=== PATIENT | male | born 1935 | race Caucasian/White ===

== ENCOUNTER 2017-02-18 11:23 | Inpatient (IN) | payer MEDICARE, MEDICAID ==
[~2017-02-18] VITALS: Ht 162.6 cm; Wt 74.2 kg
[~2017-02-18 11:23] MED LIST: AMLO5TAB2 PO; AMOX1TAB64 PO; AMPI250C3 PO; ASPI-650 PO; ATOR40TA78 PO; BIMA2.5D EACHEYE; BRIM5DRO2 EACHEYE; DORZ10DR3 EACHEYE; DORZ10DR7 EACHEYE; DOXA1TAB PO; ENOX40SY4 SQ; FENO145T13 PO; LEVO75TA5 PO; LISI-167 PO; SENN1TAB7 PO; TIMO1DRO2 EACHEYE; [UNRECOGNIZED DRUG - OTHER]; [UNRECOGNIZED DRUG - OTHER]; [UNRECOGNIZED DRUG - OTHER]
[2017-02-18] MEDS ORDERED: HYDROcodone/APAP 5/325 TABLET PO ONE (12:00)
[2017-02-18] MEDS ORDERED: HYDROcodone/APAP 5/325 TABLET PO PRN (12:00)
[2017-02-18] MEDS ORDERED: ASPIRIN 81 MG TABLET CHEW PO ONE (12:00)
[2017-02-18] MEDS ORDERED: SODIUM CHLORIDE 0.9% 1,000 ML IV ONE (12:15)
[2017-02-18 12:28] LABS: HEMATOCRIT 47.2 % (39.2-51.8); HEMOGLOBIN 15.1 g/dL (13.7-18.0); WHITE BLOOD COUNT 9.1 x10^3/uL (3.4-10)
[2017-02-18] MEDS ORDERED: NITROGLYCERIN OINT 2%, 1GM TP ONE ×2 (12:28→12:30)
[2017-02-18] MEDS ORDERED: SODIUM CHLORIDE FLUSH 10ML SYR IVF ONE (12:30)
[2017-02-18 12:36] LABS: BLOOD UREA NITROGEN 16 mg/dL (7-18)
[2017-02-18 12:41] LABS: IS PT STATUS REG ER OR PRE ER? YES
[2017-02-18] MEDS ORDERED: HEPARIN 1,000 UNITS/ML, 10ML ONE (12:42)
[2017-02-18] MEDS ORDERED: VERAPAMIL 2.5 MG/ML, 2ML ONE (12:42)
[2017-02-18] MEDS ORDERED: MIDAZOLAM 1 MG/ML, 5ML ONE (12:42)
[2017-02-18] MEDS ORDERED: NITROGLYCERIN 5 MG/ML, 10ML ONE (12:42)
[2017-02-18] MEDS ORDERED: BIVALIRUDIN 250 MG ONE ×2 (12:42→14:37)
[2017-02-18] MEDS ORDERED: TICAGRELOR 90 MG TABLET ONE (12:42)
[2017-02-18] MEDS ORDERED: FENTANYL PF 100 MCG/2ML ONE (12:42)
[2017-02-18] MEDS ORDERED: ATOR40TA78 PO (12:42)
[2017-02-18] MEDS ORDERED: LIDOCAINE 2%, 20ML ONE (12:43)
[2017-02-18] MEDS ORDERED: ONDANSETRON 2MG/ML, 2ML IVPush ONE (13:00)
[2017-02-18] MEDS ORDERED: MORPHINE SULFATE 4 MG/ML, 1ML IVPush PRN (13:00)
[2017-02-18] MEDS ORDERED: ASPIRIN 81 MG TABLET CHEW ONE (13:04)
[2017-02-18] MEDS ORDERED: LABETALOL 5MG/ML, 20ML ONE (13:46)
[2017-02-18] MEDS ORDERED: ADENOSINE 6 MG/2 ML ONE (13:52)
[2017-02-18] MEDS ORDERED: morphine SULFATE 10 MG/ML, 1ML IVPush PRN (14:00)
[2017-02-18] MEDS ORDERED: ONDANSETRON 2MG/ML, 2ML IVPush PRN ×2 (14:00→15:30)
[2017-02-18] MEDS ORDERED: ACETAMINOPHEN 325 MG TABLET PO PRN ×2 (14:00→15:30)
[2017-02-18] MEDS ORDERED: LABETALOL 5MG/ML, 20ML IVPush PRN ×2 (14:00→15:30)
[2017-02-18] MEDS ORDERED: TEMAZEPAM 15 MG CAPSULE PO PRN ×2 (14:00→15:30)
[2017-02-18] MEDS ORDERED: POLYETHYLENE GLYCOL 17 GM PACKET PO PRN ×2 (14:00→15:30)
[2017-02-18] MEDS ORDERED: OXYcodone IR 5MG TABLET PO PRN ×2 (14:00→15:30)
[2017-02-18] MEDS: METOPROLOL TARTRATE 25 MG TABLET PO SCH ×2 (14:30→22:30)
[2017-02-18] MEDS ORDERED: TICAGRELOR 90 MG TABLET PO ONE (14:30)
[2017-02-18] MEDS: NS + 20MEQ KCL 1,000 ML IV SCH (15:00)
[2017-02-18 15:17] LABS: IS PT STATUS REG ER OR PRE ER? NO
[2017-02-18 17:41] LABS: ABG COLLECTION SITE LEFT RADIAL; COLLATERAL CIRCULATION TESTING NORMAL
[2017-02-18] MEDS ORDERED: HEPARIN wt. based STROKE protocol MC PRN (18:30)
[2017-02-18] MEDS: morphine SULFATE 10 MG/ML, 1ML IVPush PRN (19:31)
[2017-02-18 20:09] LABS: IS PT STATUS REG ER OR PRE ER? NO
[2017-02-18] MEDS: HEPARIN 25,000 UNITS/500ML PMX 500 ML IV PRN (20:38)
[2017-02-18] MEDS ORDERED: NALOXONE 0.4 MG/ML, 1ML ONE (20:55)
[2017-02-18] MEDS: ATORVASTATIN 40 MG TABLET PO SCH (21:00)
[2017-02-19] MEDS: DORZOLAMIDE OPHTH 2%, 10ML EACHEYE SCH ×3 (02:55→21:15)
[2017-02-19] MEDS: LEVETIRACETAM 500 MG in SODIUM CHLORIDE 0.9% 100 ML IV SCH ×2 (02:55→15:11)
[2017-02-19 05:20] LABS: HEMATOCRIT 45.1 % (39.2-51.8); HEMOGLOBIN 14.8 g/dL (13.7-18.0)
[2017-02-19 05:39] LABS: ASPARTATE AMINO TRANSFERASE 77 U/L (15-37); BLOOD UREA NITROGEN 21 mg/dL (7-18)
[2017-02-19] MEDS: METOPROLOL TARTRATE 25 MG TABLET PO SCH ×3 (06:30→22:16)
[2017-02-19] MEDS ORDERED: HEPARIN 5,000 UNITS/ML, 1ML ONE (06:30)
[2017-02-19] MEDS: PANTOPROZOLE 40MG TABLET PO SCH (07:30)
[2017-02-19] MEDS: LEVOTHYROXINE 75 MCG TABLET PO SCH (08:00)
[2017-02-19] MEDS: SENNA/DOCUSATE TABLET PO SCH (09:00)
[2017-02-19] MEDS: LISINOPRIL 5 MG TABLET PO SCH (09:00)
[2017-02-19] MEDS ORDERED: SENNA/DOCUSATE TABLET PO SCH (09:00)
[2017-02-19] MEDS: AMPICILLIN/SULBACTAM 3 GM in SODIUM CHLORIDE 0.9% 100 ML IV SCH ×3 (09:43→21:15)
[2017-02-19] MEDS: NS + 20MEQ KCL 1,000 ML IV SCH (13:57)
[2017-02-19] MEDS: ATORVASTATIN 40 MG TABLET PO SCH (21:00)
[2017-02-20] MEDS: NS + 20MEQ KCL 1,000 ML IV SCH ×3 (00:28→22:58)
[2017-02-20] MEDS ORDERED: ACETAMINOPHEN 650 MG SUPP PR PRN (00:30)
[2017-02-20] MEDS: HEPARIN 25,000 UNITS/500ML PMX 500 ML IV PRN (00:32)
[2017-02-20] MEDS: LEVETIRACETAM 500 MG in SODIUM CHLORIDE 0.9% 100 ML IV SCH ×2 (03:04→15:22)
[2017-02-20] MEDS: AMPICILLIN/SULBACTAM 3 GM in SODIUM CHLORIDE 0.9% 100 ML IV SCH ×4 (03:36→20:36)
[2017-02-20 04:00] VITALS: BP 129/62
[2017-02-20 07:53] LABS: HEMATOCRIT 40.9 % (39.2-51.8); HEMOGLOBIN 13.2 g/dL (13.7-18.0); WHITE BLOOD COUNT 16.5 x10^3/uL (3.4-10)
[2017-02-20 07:58] LABS: BLOOD UREA NITROGEN 23 mg/dL (7-18)
[2017-02-20] MEDS ORDERED: CLOPIDOGREL 300 MG TABLET PO ONE (10:30)
[2017-02-20] MEDS: DORZOLAMIDE OPHTH 2%, 10ML EACHEYE SCH ×2 (11:01→20:36)
[2017-02-20] MEDS: LISINOPRIL 5 MG TABLET PO SCH (11:01)
[2017-02-20] MEDS: LEVOTHYROXINE 75 MCG TABLET PO SCH (11:01)
[2017-02-20] MEDS: METOPROLOL TARTRATE 25 MG TABLET PO SCH ×3 (11:02→22:19)
[2017-02-20] MEDS: SENNA/DOCUSATE TABLET PO SCH (11:02)
[2017-02-20] MEDS: PANTOPROZOLE 40MG TABLET PO SCH (11:02)
[2017-02-20] MEDS: ATORVASTATIN 40 MG TABLET PO SCH (20:36)
[2017-02-20] MEDS: morphine SULFATE 10 MG/ML, 1ML IVPush PRN (23:03)
[2017-02-21] MEDS: AMPICILLIN/SULBACTAM 3 GM in SODIUM CHLORIDE 0.9% 100 ML IV SCH ×4 (02:35→20:29)
[2017-02-21] MEDS: LEVETIRACETAM 500 MG in SODIUM CHLORIDE 0.9% 100 ML IV SCH ×2 (02:35→14:30)
[2017-02-21] MEDS: morphine SULFATE 10 MG/ML, 1ML IVPush PRN ×3 (02:43→14:30)
[2017-02-21 04:00] VITALS: BP 104/58
[2017-02-21 04:29] LABS: HEMATOCRIT 39.4 % (39.2-51.8); HEMOGLOBIN 12.3 g/dL (13.7-18.0); WHITE BLOOD COUNT 11.3 x10^3/uL (3.4-10)
[2017-02-21 04:34] LABS: ASPARTATE AMINO TRANSFERASE 83 U/L (15-37); BLOOD UREA NITROGEN 23 mg/dL (7-18)
[2017-02-21] MEDS: LEVOTHYROXINE 75 MCG TABLET PO SCH (05:56)
[2017-02-21] MEDS: METOPROLOL TARTRATE 25 MG TABLET PO SCH ×3 (05:58→22:34)
[2017-02-21] MEDS: PANTOPROZOLE 40MG TABLET PO SCH (06:33)
[2017-02-21] MEDS: SENNA/DOCUSATE TABLET PO SCH (09:30)
[2017-02-21] MEDS: SPIRONOLACTONE 25 MG TABLET PO SCH (09:30)
[2017-02-21] MEDS: LISINOPRIL 5 MG TABLET PO SCH (09:31)
[2017-02-21] MEDS: DORZOLAMIDE OPHTH 2%, 10ML EACHEYE SCH ×2 (09:31→20:29)
[2017-02-21] MEDS: CLOPIDOGREL 75 MG TABLET PO SCH (09:31)
[2017-02-21] MEDS ORDERED: NITROGLYCERIN OINT 2%, 1GM TP ONE (10:00)
[2017-02-21] MEDS: ATORVASTATIN 40 MG TABLET PO SCH (20:30)
[2017-02-22] MEDS: LEVETIRACETAM 500 MG in SODIUM CHLORIDE 0.9% 100 ML IV SCH ×2 (02:28→15:16)
[2017-02-22] MEDS: AMPICILLIN/SULBACTAM 3 GM in SODIUM CHLORIDE 0.9% 100 ML IV SCH ×4 (02:28→22:03)
[2017-02-22] MEDS: morphine SULFATE 10 MG/ML, 1ML IVPush PRN (03:50)
[2017-02-22 04:00] VITALS: BP 142/80
[2017-02-22 04:49] LABS: HEMATOCRIT 37.2 % (39.2-51.8); HEMOGLOBIN 12.1 g/dL (13.7-18.0); WHITE BLOOD COUNT 9.9 x10^3/uL (3.4-10)
[2017-02-22 04:57] LABS: BLOOD UREA NITROGEN 21 mg/dL (7-18)
[2017-02-22 04:58] LABS: ASPARTATE AMINO TRANSFERASE 79 U/L (15-37)
[2017-02-22] MEDS: LEVOTHYROXINE 75 MCG TABLET PO SCH (06:13)
[2017-02-22] MEDS: METOPROLOL TARTRATE 25 MG TABLET PO SCH ×3 (06:13→22:03)
[2017-02-22] MEDS: CLOPIDOGREL 75 MG TABLET PO SCH (08:42)
[2017-02-22] MEDS: SPIRONOLACTONE 25 MG TABLET PO SCH (08:42)
[2017-02-22] MEDS: PANTOPROZOLE 40MG TABLET PO SCH (08:42)
[2017-02-22] MEDS: SENNA/DOCUSATE TABLET PO SCH (08:42)
[2017-02-22] MEDS: DORZOLAMIDE OPHTH 2%, 10ML EACHEYE SCH ×2 (08:42→22:02)
[2017-02-22] MEDS: LISINOPRIL 5 MG TABLET PO SCH (08:42)
[2017-02-22] MEDS ORDERED: POTASSIUM CHLORIDE 20 MEQ PACKET PO ONE (10:00)
[2017-02-22] MEDS: ISOSORBIDE MONONITRATE ER 30 MG TABLET PO SCH (11:08)
[2017-02-22] MEDS ORDERED: methylPREDNISolone SOD SUCC 40 MG/ML IV SCH (22:00)
[2017-02-22] MEDS ORDERED: FUROSEMIDE 20 MG/2 ML IV ONE (22:00)
[2017-02-22] MEDS: ATORVASTATIN 40 MG TABLET PO SCH (22:02)
[2017-02-23] MEDS: AMPICILLIN/SULBACTAM 3 GM in SODIUM CHLORIDE 0.9% 100 ML IV SCH ×4 (02:57→21:02)
[2017-02-23] MEDS: LEVETIRACETAM 500 MG in SODIUM CHLORIDE 0.9% 100 ML IV SCH ×2 (02:57→15:17)
[2017-02-23 04:00] VITALS: BP 144/74
[2017-02-23 04:26] LABS: HEMATOCRIT 37.5 % (39.2-51.8); HEMOGLOBIN 12.2 g/dL (13.7-18.0); WHITE BLOOD COUNT 7.4 x10^3/uL (3.4-10)
[2017-02-23 04:36] LABS: BLOOD UREA NITROGEN 20 mg/dL (7-18)
[2017-02-23 04:41] LABS: ASPARTATE AMINO TRANSFERASE 182 U/L (15-37)
[2017-02-23] MEDS: LEVOTHYROXINE 75 MCG TABLET PO SCH (05:49)
[2017-02-23] MEDS: METOPROLOL TARTRATE 25 MG TABLET PO SCH ×3 (06:00→21:04)
[2017-02-23] MEDS: PANTOPROZOLE 40MG TABLET PO SCH (08:17)
[2017-02-23] MEDS: SPIRONOLACTONE 25 MG TABLET PO SCH (08:17)
[2017-02-23] MEDS: CLOPIDOGREL 75 MG TABLET PO SCH (08:17)
[2017-02-23] MEDS: DORZOLAMIDE OPHTH 2%, 10ML EACHEYE SCH ×2 (08:18→21:00)
[2017-02-23] MEDS: ISOSORBIDE MONONITRATE ER 30 MG TABLET PO SCH (08:18)
[2017-02-23] MEDS: LISINOPRIL 5 MG TABLET PO SCH (08:18)
[2017-02-23] MEDS: SENNA/DOCUSATE TABLET PO SCH (08:18)
[2017-02-23] MEDS ORDERED: DIPHENHYDRAMINE 50 MG/ML, 1ML IVPush ONE (10:00)
[2017-02-23] MEDS ORDERED: BENZOCAINE 20% SPRAY 0.5ML TP ONE (11:30)
[2017-02-23] MEDS ORDERED: ALBUTEROL SULFATE 2.5 MG/3 ML ONE (12:49)
[2017-02-23] MEDS: ALBUTEROL SULFATE 2.5 MG/3 ML NPPB SCH ×2 (12:50→18:23)
[2017-02-23 19:35] VITALS: BP 159/82
[2017-02-23] MEDS: ATORVASTATIN 40 MG TABLET PO SCH (21:04)
[2017-02-24 01:17] VITALS: BP 155/77
[2017-02-24] MEDS: ALBUTEROL SULFATE 2.5 MG/3 ML NPPB SCH ×2 (01:30→07:30)
[2017-02-24] MEDS: LEVETIRACETAM 500 MG in SODIUM CHLORIDE 0.9% 100 ML IV SCH (03:36)
[2017-02-24] MEDS: AMPICILLIN/SULBACTAM 3 GM in SODIUM CHLORIDE 0.9% 100 ML IV SCH ×2 (03:52→08:58)
[2017-02-24 05:57] VITALS: BP 164/63
[2017-02-24] MEDS: LABETALOL 5MG/ML, 20ML IVPush PRN ×2 (05:59→09:26)
[2017-02-24] MEDS: LEVOTHYROXINE 75 MCG TABLET PO SCH (06:00)
[2017-02-24 06:13] LABS: ASPARTATE AMINO TRANSFERASE 159 U/L (15-37)
[2017-02-24] MEDS: METOPROLOL TARTRATE 25 MG TABLET PO SCH (06:30)
[2017-02-24 06:40] VITALS: BP 143/72
[2017-02-24] MEDS: PANTOPROZOLE 40MG TABLET PO SCH (07:30)
[2017-02-24 08:10] LABS: ABG COLLECTION SITE RIGHT RADIAL
[2017-02-24 08:11] LABS: COLLATERAL CIRCULATION TESTING NORMAL
[2017-02-24 08:22] LABS: BLOOD UREA NITROGEN 18 mg/dL (7-18)
[2017-02-24 08:34] LABS: WHITE BLOOD COUNT 10.2 x10^3/uL (3.4-10)
[2017-02-24 08:36] LABS: DIFF TOTAL CELLS COUNTED 100 CELL DIFF
[2017-02-24 08:40] LABS: GIANT PLATELETS 1+; LARGE PLATELETS 2+; VERIFY COUNTS? YES
[2017-02-24 08:54] VITALS: BP 155/77
[2017-02-24] MEDS: DORZOLAMIDE OPHTH 2%, 10ML EACHEYE SCH (08:58)
[2017-02-24] MEDS: CLOPIDOGREL 75 MG TABLET PO SCH (09:00)
[2017-02-24] MEDS: SENNA/DOCUSATE TABLET PO SCH (09:00)
[2017-02-24] MEDS: ISOSORBIDE MONONITRATE ER 30 MG TABLET PO SCH (09:00)
[2017-02-24] MEDS: LISINOPRIL 5 MG TABLET PO SCH (09:00)
[2017-02-24] MEDS: SPIRONOLACTONE 25 MG TABLET PO SCH (09:00)
[2017-02-24] MEDS ORDERED: morphine SULFATE 10 MG/ML, 1ML IV ONE (11:30)
[2017-02-24] MEDS ORDERED: LORazepam 2 MG/ML, 1ML IV PRN (11:30)
[2017-02-24] MEDS ORDERED: SCOPOLAMINE PATCH, 1.5MG PATCH.TD72 TD ONE (13:00)
[2017-02-27] MEDS: ATROPINE OPHTH SOLN 1%, 2ML PO PRN ×2 (12:02→17:26)
[2017-03-01] MEDS: ATROPINE OPHTH SOLN 1%, 2ML PO PRN ×2 (11:29→16:18)
[2017-03-02] MEDS: ATROPINE OPHTH SOLN 1%, 2ML PO PRN (00:33)
== END 2017-03-02 06:20 | disposition expired | DRG 248 ==
LOC: ED 12:06 → EDIP 12:38 → CCU 14:34 → ICU 02-20 14:59 → 5SO 02-23 19:29 → 3NW 02-24 13:37
PROVIDERS: ADMIT Internal Medicine Cardiovascular Disease
PROC: 02703DZ Dilation of Coronary Artery, One Artery with Intraluminal Device, Percutaneous Approach (ICD-10-PCS; principal; 2017-02-18)
PROC: 4A023N7 Measurement of Cardiac Sampling and Pressure, Left Heart, Percutaneous Approach (ICD-10-PCS; 2017-02-18)
PROC: B2111ZZ Fluoroscopy of Multiple Coronary Arteries using Low Osmolar Contrast (ICD-10-PCS; 2017-02-18)
PROC: B3101ZZ Fluoroscopy of Thoracic Aorta using Low Osmolar Contrast (ICD-10-PCS; 2017-02-18)
PROC: B2151ZZ Fluoroscopy of Left Heart using Low Osmolar Contrast (ICD-10-PCS; 2017-02-18)
DX: I21.09 ST elevation (STEMI) myocardial infarction involving other coronary artery of anterior wall (principal); I60.9 Nontraumatic subarachnoid hemorrhage, unspecified; I63.9 Cerebral infarction, unspecified; G93.5 Compression of brain; G93.6 Cerebral edema; N17.9 Acute kidney failure, unspecified; E87.0 Hyperosmolality and hypernatremia; G81.91 Hemiplegia, unspecified affecting right dominant side; E87.6 Hypokalemia; I45.10 Unspecified right bundle-branch block; M19.90 Unspecified osteoarthritis, unspecified site; E03.9 Hypothyroidism, unspecified; E78.5 Hyperlipidemia, unspecified; H40.9 Unspecified glaucoma; H54.0 Blindness, both eyes; Z66 Do not resuscitate; I10 Essential (primary) hypertension; Z51.5 Encounter for palliative care; R06.89 Other abnormalities of breathing; B95.2 Enterococcus as the cause of diseases classified elsewhere; I25.10 Atherosclerotic heart disease of native coronary artery without angina pectoris; I25.5 Ischemic cardiomyopathy; I35.8 Other nonrheumatic aortic valve disorders; I77.819 Aortic ectasia, unspecified site; N40.0 Benign prostatic hyperplasia without lower urinary tract symptoms; R13.10 Dysphagia, unspecified; Z79.82 Long term (current) use of aspirin; Z79.899 Other long term (current) drug therapy; I25.2 Old myocardial infarction; Z87.891 Personal history of nicotine dependence
CPT/HCPCS: 36415; 36600; 70450; 70551; 71010; 74000; 80047; 80048; 80053; 80061; 81001; 82040; 82140; 82803; 83735; 84100; 84295; 84443; 84450; 84460; 84484; 85025; 85520; 85610; 85730; 87077; 87081; 87086; 87186; 93005; 93306; 93458; 93567; 94640; 96360; 99156; 99157; C1760; C1769; C1876; C1894; J0153; J0295; J0583; J1644; J1953; J2250; J3010; J3480; J3490; J7060; J7613; C1725; C1887; J2060; J2270; J7030; J7050; Q9967